=== PATIENT | male | born 1980 ===

== ENCOUNTER 2023-11-29 08:00 | Outpatient (CLI) | payer OTHER ==
[2023-11-29 18:03] LABS: BASOPHILS % (AUTO) 0.5 %; EOSINOPHILS # (AUTO) 0.3 10^3/uL (0.0-0.7); EOSINOPHILS % (AUTO) 5.3 %; HCT - HEMATOCRIT 45.7 % (42.0-52.0); HGB - HEMOGLOBIN 15.1 g/dL (14.0-18.0); LYMPHOCYTES # (AUTO) 2.4 10^3/uL (1.5-3.5); LYMPHOCYTES % (AUTO) 43.2 %; MEAN CORPUSCULAR HEMOGLOBIN 28.3 pg (27.0-31.0); MEAN CORPUSCULAR VOLUME 85.6 fL (80.0-94.0); MEAN PLATELET VOLUME 10.4 fL (7.4-11.4); MONOCYTES # (AUTO) 0.3 10^3/uL (0.0-1.0); MONOCYTES % (AUTO) 5.9 %; NEUTROPHILS # (AUTO) 2.5 10^3/uL (1.5-6.6); NEUTROPHILS % (AUTO) 44.7 %; PLT - PLATELET COUNT 252 10^3/uL (130-450); RED BLOOD COUNT 5.34 10^6/uL (4.70-6.10); RED CELL DISTRIBUTION WIDTH 12.6 % (12.0-15.0); WHITE BLOOD COUNT 5.6 x10^3/uL (4.8-10.8)
[2023-11-29 18:18] LABS: ALBUMIN 4.8 g/dL (3.2-5.5); ALBUMIN/GLOBULIN RATIO 1.8 (1.0-2.2); BILIRUBIN,TOTAL 0.8 mg/dL (0.2-1.0); CALCIUM 10.1 mg/dL (8.5-10.3); CREATININE 0.8 mg/dL (0.6-1.3); POTASSIUM 4.1 mmol/L (3.5-4.5); TOTAL PROTEIN 7.4 g/dL (6.4-8.9); URIC ACID 6.8 mg/dL (4.4-7.6)
[2023-11-29 18:57] LABS: THYROID STIMULATING HORMONE 1.14 uIU/mL (0.34-5.60)
== END 2023-11-29 23:59 | disposition home or self-care (01) ==
LOC: LAB.N 08:00
PROVIDERS: ATTEND Family Medicine
DX: R06.09 Other forms of dyspnea (principal); M79.675 Pain in left toe(s)
CPT/HCPCS: 36415; 80053; 83880; 84443; 84550; 85025

== ENCOUNTER 2023-12-02 19:07 | Outpatient (CLI) | payer OTHER ==
--- NOTE | 2023-12-03 07:14 | XRAY Report ---
PROCEDURE: Chest 2V INDICATIONS: COUGH/DYSPNEA ON EXERTION TECHNIQUE: 2 views of the chest were acquired. COMPARISON: None. FINDINGS: Surgical changes and devices: None. Lungs and pleura: No pleural effusions or pneumothorax. Lungs are clear. Mediastinum: Mediastinal contours appear normal. Heart size is normal. Bones and chest wall: No suspicious bony lesions. Overlying soft tissues appear unremarkable. IMPRESSION: No acute cardiopulmonary process. Reviewed by: Bj Vazquez MD on 12/03/2023 7:13 AM PDT Approved by: Bj Vazquez MD on 12/03/2023 7:13 AM PDT Station ID: [id number]
== END 2023-12-02 19:08 | disposition home or self-care (01) ==
LOC: DI 19:07
PROVIDERS: ATTEND Family Medicine
DX: R05.9 Cough, unspecified (principal); R06.09 Other forms of dyspnea